=== PATIENT | female | born 1940 | race Caucasian/White ===

== ENCOUNTER 2017-01-27 17:27 | Inpatient (IN) | payer MEDICARE, MEDICAID ==
[~2017-01-27] VITALS: Ht 162.6 cm; Wt 89.0 kg
[2017-01-27] MEDS ORDERED: MORP30TA81 PO (18:19)
[2017-01-27] MEDS ORDERED: GABA100C8 PO (18:19)
[2017-01-27] MEDS ORDERED: DOCU-30 PO (18:19)
[2017-01-27] MEDS ORDERED: HEPA500024 SC (18:19)
[2017-01-27] MEDS ORDERED: OXYC5CAP4 PO (18:19)
[2017-01-27] MEDS ORDERED: METO25TA35 PO (18:19)
[2017-01-27] MEDS ORDERED: TRAM-28 PO (18:19)
[2017-01-27] MEDS ORDERED: SODIUM CHLORIDE 0.9% 1,000ML IVBOLUS ONE (18:30)
[2017-01-27] MEDS ORDERED: SODIUM CHLORIDE FLUSH 10ML SYR IVF ONE (18:30)
[2017-01-27] MEDS ORDERED: PLEASE ENTER ALLERGIES MC SCH ×2 (18:30)
[2017-01-27] MEDS ORDERED: PHARMACOKINETIC CONSULTATION MC ONE (18:30)
[2017-01-27] MEDS ORDERED: AMPICILLIN/SULBACTAM 3 GM in SODIUM CHLORIDE 0.9% 100 ML IVPB ONE (18:30)
[2017-01-27] MEDS ORDERED: VANCOMYCIN PER PHARMACY MC ONE (18:30)
[2017-01-27] MEDS ORDERED: VANCOMYCIN 2,000 MG in SODIUM CHLORIDE 0.9% 500 ML IV ONE (18:30)
[2017-01-27 20:19] LABS: BLOOD UREA NITROGEN 14 mg/dL (7-18)
[2017-01-27 20:22] LABS: DIFF TOTAL CELLS COUNTED 100 CELL DIFF
[2017-01-27 20:24] LABS: VERIFY COUNTS? YES
[2017-01-27 20:25] LABS: POLYCHROMASIA 1+
[2017-01-27] MEDS ORDERED: CLINDAMYCIN PMX 600MG/50ML 50 ML IV ONE (21:00)
[2017-01-28 00:23] VITALS: BP 134/69
[2017-01-28] MEDS ORDERED: GABAPENTIN 100 MG CAPSULE PO PRN (00:30)
[2017-01-28] MEDS ORDERED: TEMPLATE NON-FORMULARY MED. (Oxycodone Hcl** 5 MG) PO SCH (00:30)
[2017-01-28] MEDS: HEPARIN 5,000 UNITS/ML, 1ML SQ SCH ×3 (02:22→16:39)
[2017-01-28] MEDS: OXYCODONE MC SCH ×3 (02:24→17:29)
[2017-01-28] MEDS: TRAMADOL MC SCH ×4 (02:24→23:05)
[2017-01-28 02:33] VITALS: BP 150/69
[2017-01-28] MEDS ORDERED: VANCOMYCIN PER PHARMACY MC PRN (03:30)
[2017-01-28] MEDS ORDERED: PHARMACOKINETIC MONITORING MC PRN (04:00)
[2017-01-28] MEDS ORDERED: MORPHINE SULFATE 4 MG/ML, 1ML ONE (04:03)
[2017-01-28] MEDS: AMPICILLIN/SULBACTAM 3 GM in SODIUM CHLORIDE 0.9% 100 ML IV SCH ×4 (04:12→21:44)
[2017-01-28] MEDS: MORPHINE SULFATE 4 MG/ML, 1ML IVPush PRN ×3 (04:12→14:00)
[2017-01-28] MEDS: CLINDAMYCIN PMX 600MG/50ML 50 ML IV SCH ×3 (04:59→22:58)
[2017-01-28] MEDS: METOPROLOL TARTRATE 25 MG TABLET PO SCH ×2 (05:22→21:42)
[2017-01-28 07:40] VITALS: BP 149/65
[2017-01-28] MEDS ORDERED: VANCOMYCIN 1,300 MG in SODIUM CHLORIDE 0.9% 250 ML IVPB SCH (08:00)
[2017-01-28] MEDS ORDERED: HEPARIN SODIUM PORCINE SC SCH (09:00)
[2017-01-28] MEDS ORDERED: DOCUSATE 100 MG CAPSULE PO PRN (09:00)
[2017-01-28] MEDS ORDERED: [UNRECOGNIZED DRUG - OTHER] SC SCH (09:00)
[2017-01-28] MEDS ORDERED: FENTANYL PF 250 MCG/5ML ONE (09:14)
[2017-01-28] MEDS ORDERED: EPHEDRINE 50 MG/ML, 1ML ONE (09:21)
[2017-01-28] MEDS ORDERED: PROPOFOL 10 MG/ML, 20ML ONE (09:21)
[2017-01-28] MEDS ORDERED: VANCOMYCIN 1,000 MG ONE (10:14)
[2017-01-28 12:50] VITALS: BP 141/63
[2017-01-28] MEDS: SODIUM CHLORIDE 0.9% 1,000 ML IV SCH (13:09)
[2017-01-28] MEDS: VANCOMYCIN 1,700 MG in SODIUM CHLORIDE 0.9% 250 ML IV SCH (14:00)
[2017-01-28] MEDS: OXYcodone IR 5MG TABLET PO PRN ×2 (15:23→18:19)
[2017-01-28] MEDS: morphine SULFATE 10 MG/ML, 1ML IVPush PRN (17:26)
[2017-01-28 19:59] VITALS: BP 138/76
[2017-01-28 23:55] VITALS: BP 104/63
[2017-01-29] VITALS (9 sets, daily range): BP systolic 102–125; BP diastolic 43–61
[2017-01-29] MEDS: HEPARIN 5,000 UNITS/ML, 1ML SQ SCH ×3 (00:33→16:30)
[2017-01-29] MEDS: OXYcodone IR 5MG TABLET PO PRN (00:44)
[2017-01-29] MEDS: SODIUM CHLORIDE 0.9% 1,000 ML IV SCH (03:44)
[2017-01-29] MEDS: CLINDAMYCIN PMX 600MG/50ML 50 ML IV SCH ×3 (04:16→10:00)
[2017-01-29] MEDS: AMPICILLIN/SULBACTAM 3 GM in SODIUM CHLORIDE 0.9% 100 ML IV SCH ×3 (04:18→19:43)
[2017-01-29 05:55] LABS: BLOOD UREA NITROGEN 13 mg/dL (7-18)
[2017-01-29] MEDS: TRAMADOL MC SCH ×3 (06:15→22:14)
[2017-01-29 07:41] LABS: DIFF TOTAL CELLS COUNTED 100 CELL DIFF
[2017-01-29 07:58] LABS: VERIFY COUNTS? YES
[2017-01-29 07:59] LABS: ANISOCYTOSIS 1+; MICROCYTOSIS 1+; POIKILOCYTOSIS 1+
[2017-01-29] MEDS: METOPROLOL TARTRATE 25 MG TABLET PO SCH ×2 (08:40→22:13)
[2017-01-29] MEDS: VANCOMYCIN 1,700 MG in SODIUM CHLORIDE 0.9% 250 ML IV SCH (11:59)
[2017-01-30 01:24] VITALS: BP 126/60
[2017-01-30] MEDS: AMPICILLIN/SULBACTAM 3 GM in SODIUM CHLORIDE 0.9% 100 ML IV SCH ×2 (01:27→08:59)
[2017-01-30 02:26] VITALS: BP 117/58
[2017-01-30] MEDS: SODIUM CHLORIDE 0.9% 1,000 ML IV SCH ×3 (03:53→21:55)
[2017-01-30 05:39] LABS: ASPARTATE AMINO TRANSFERASE 19 U/L (15-37); BLOOD UREA NITROGEN 12 mg/dL (7-18)
[2017-01-30] MEDS: VANCOMYCIN 1,700 MG in SODIUM CHLORIDE 0.9% 250 ML IV SCH (06:12)
[2017-01-30] MEDS: TRAMADOL MC SCH (06:15)
[2017-01-30 07:32] VITALS: BP 139/60
[2017-01-30] MEDS: METOPROLOL TARTRATE 25 MG TABLET PO SCH ×2 (08:59→21:55)
[2017-01-30] MEDS ORDERED: morphine SULFATE 10 MG/ML, 1ML IVPush PRN (09:30)
[2017-01-30] MEDS: CEFTRIAXONE PMX 2GM/50ML 50 ML IV SCH ×2 (12:26→12:30)
[2017-01-30] MEDS: morphine SULFATE 10 MG/ML, 1ML IVPush PRN ×2 (13:49→21:58)
[2017-01-30 16:23] VITALS: BP 145/61
[2017-01-30] MEDS: CEFTAROLINE 600 MG in SODIUM CHLORIDE 0.9% 100 ML IV SCH (18:22)
[2017-01-30] MEDS ORDERED: FENTANYL PF 250 MCG/5ML ONE (19:45)
[2017-01-30] MEDS ORDERED: HYDROmorphone 1 MG/ML, 1ML ONE (19:54)
[2017-01-30] MEDS ORDERED: PROPOFOL 10 MG/ML, 20ML ONE (20:08)
[2017-01-30] MEDS ORDERED: ONDANSETRON 2MG/ML, 2ML ONE (20:08)
[2017-01-30] MEDS ORDERED: SUCCINYLCHOLINE 20 MG/ML, 10ML ONE (20:08)
[2017-01-30] MEDS ORDERED: FENTANYL PF 100 MCG/2ML ONE (20:45)
[2017-01-30] MEDS: FENTANYL PF 100 MCG/2ML IV PRN ×2 (20:45→20:55)
[2017-01-30] MEDS ORDERED: ONDANSETRON 2MG/ML, 2ML IVPush PRN (21:00)
[2017-01-30] MEDS ORDERED: EPHEDRINE 50 MG/ML, 1ML IVPush PRN (21:00)
[2017-01-30] MEDS ORDERED: OXYcodone 5 MG/5 ML ORAL.SOL UDC PO PRN (21:00)
[2017-01-30] MEDS ORDERED: hydrALAzine 20 MG/ML, 1ML IV PRN (21:00)
[2017-01-30] MEDS ORDERED: HYDROcodone/APAP 7.5-325MG/15ML UDC PO PRN (21:00)
[2017-01-30] MEDS ORDERED: HYDROmorphone 1 MG/ML, 1ML IV PRN (21:00)
[2017-01-30] MEDS ORDERED: PROMETHAZINE 25 MG/ML, 1ML IV PRN (21:00)
[2017-01-30] MEDS ORDERED: LABETALOL 5MG/ML, 20ML IV PRN (21:00)
[2017-01-30] MEDS ORDERED: ACETAMINOPHEN 325 MG TABLET PO PRN (21:00)
[2017-01-30 21:24] VITALS: BP 138/65
[2017-01-30 23:51] VITALS: BP 122/56
[2017-01-31 04:58] VITALS: BP 118/51
[2017-01-31] MEDS: SODIUM CHLORIDE 0.9% 1,000 ML IV SCH (05:29)
[2017-01-31] MEDS: CEFTAROLINE 600 MG in SODIUM CHLORIDE 0.9% 100 ML IV SCH ×2 (05:29→18:09)
[2017-01-31 08:15] VITALS: BP 127/55
[2017-01-31] MEDS: morphine SULFATE 10 MG/ML, 1ML IVPush PRN ×3 (09:55→18:09)
[2017-01-31] MEDS: METOPROLOL TARTRATE 25 MG TABLET PO SCH ×2 (09:56→20:30)
[2017-01-31 13:52] VITALS: BP 140/57
[2017-01-31 14:11] VITALS: BP 135/55
[2017-01-31 16:19] VITALS: BP 129/48
[2017-01-31 19:17] VITALS: BP 136/40
[2017-02-01 04:09] VITALS: BP 125/54
[2017-02-01] MEDS: CEFTAROLINE 600 MG in SODIUM CHLORIDE 0.9% 100 ML IV SCH ×3 (05:56→20:28)
[2017-02-01 06:54] LABS: ASPARTATE AMINO TRANSFERASE 19 U/L (15-37); BLOOD UREA NITROGEN 11 mg/dL (7-18)
[2017-02-01 06:58] VITALS: BP 142/63
[2017-02-01] MEDS: METOPROLOL TARTRATE 25 MG TABLET PO SCH ×2 (09:00→20:28)
[2017-02-01 13:04] VITALS: BP 139/63
[2017-02-01] MEDS: morphine SULFATE 10 MG/ML, 1ML IVPush PRN ×2 (14:24→20:28)
[2017-02-01] MEDS ORDERED: FENTANYL PF 250 MCG/5ML ONE (17:09)
[2017-02-01] MEDS ORDERED: ONDANSETRON 2MG/ML, 2ML ONE (17:15)
[2017-02-01] MEDS ORDERED: LABETALOL 20 MG/4 ML ONE (17:15)
[2017-02-01] MEDS ORDERED: PROPOFOL 10 MG/ML, 20ML ONE (17:15)
[2017-02-01] MEDS ORDERED: OXYcodone 5 MG/5 ML ORAL.SOL UDC PO PRN (18:00)
[2017-02-01] MEDS ORDERED: HYDROmorphone 1 MG/ML, 1ML IV PRN (18:00)
[2017-02-01] MEDS ORDERED: MIDAZOLAM 1 MG/ML, 2ML IV PRN (18:00)
[2017-02-01] MEDS ORDERED: PROMETHAZINE 25 MG/ML, 1ML IV PRN (18:00)
[2017-02-01] MEDS ORDERED: ONDANSETRON 2MG/ML, 2ML IVPush PRN (18:00)
[2017-02-01] MEDS ORDERED: ACETAMINOPHEN 325 MG TABLET PO PRN (18:00)
[2017-02-01] MEDS ORDERED: MEPERIDINE/PF 25MG/0.5ML IVPush PRN (18:00)
[2017-02-01] MEDS ORDERED: ALBUTEROL/IPRATROPIUM 2.5MG/0.5MG, 3 ML NPPB PRN (18:00)
[2017-02-01] MEDS ORDERED: hydrALAzine 20 MG/ML, 1ML IV PRN (18:00)
[2017-02-01] MEDS ORDERED: LABETALOL 5MG/ML, 20ML IV PRN (18:00)
[2017-02-01] MEDS ORDERED: ACETAMINOPHEN 650 MG/20.3 ML UDC ONE (18:03)
[2017-02-01] MEDS ORDERED: FENTANYL PF 100 MCG/2ML ONE (18:03)
[2017-02-01] MEDS ORDERED: OXYcodone 5 MG/5 ML ORAL.SOL UDC ONE (18:04)
[2017-02-01] MEDS: FENTANYL PF 100 MCG/2ML IV PRN ×2 (18:15→18:28)
[2017-02-01 19:55] VITALS: BP 126/59
[2017-02-01 22:44] VITALS: BP 118/51
[2017-02-02 02:02] VITALS: BP 107/48
[2017-02-02] MEDS: OXYcodone IR 5MG TABLET PO PRN ×2 (03:06→17:22)
[2017-02-02 08:18] VITALS: BP 123/57
[2017-02-02] MEDS: CEFTAROLINE 600 MG in SODIUM CHLORIDE 0.9% 100 ML IV SCH ×2 (08:55→20:42)
[2017-02-02] MEDS: METOPROLOL TARTRATE 25 MG TABLET PO SCH ×2 (08:56→20:45)
[2017-02-02] MEDS ORDERED: VISIPAQUE 270 MG/ML, 50ML BOTTLE ONE (12:06)
[2017-02-02 14:34] VITALS: BP 134/51
[2017-02-02 18:40] VITALS: BP 115/45
[2017-02-03 01:14] VITALS: BP 130/57
[2017-02-03] MEDS: OXYcodone IR 5MG TABLET PO PRN ×3 (05:02→16:00)
[2017-02-03 05:52] LABS: BLOOD UREA NITROGEN 10 mg/dL (7-18)
[2017-02-03 08:09] VITALS: BP 151/64
[2017-02-03] MEDS: METOPROLOL TARTRATE 25 MG TABLET PO SCH (08:51)
[2017-02-03] MEDS: CEFTAROLINE 600 MG in SODIUM CHLORIDE 0.9% 100 ML IV SCH (08:51)
[2017-02-03 12:49] VITALS: BP 122/52
[2017-02-03] MEDS ORDERED: CEFTAROLINE 600 MG in SODIUM CHLORIDE 0.9% 100 ML IV SCH ×2 (14:00→20:00)
== END 2017-02-03 16:15 | DRG 463 ==
LOC: ED 19:50 → EDIP 21:05 → 4NOR 23:05
PROVIDERS: ADMIT Internal Medicine
PROC: 0JBM0ZZ Excision of Left Upper Leg Subcutaneous Tissue and Fascia, Open Approach (ICD-10-PCS; 2017-01-28)
PROC: 30233N1 Transfusion of Nonautologous Red Blood Cells into Peripheral Vein, Percutaneous Approach (ICD-10-PCS; 2017-01-29)
PROC: 0QB90ZZ Excision of Left Femoral Shaft, Open Approach (ICD-10-PCS; principal; 2017-01-30 19:15)
PROC: 30233N1 Transfusion of Nonautologous Red Blood Cells into Peripheral Vein, Percutaneous Approach (ICD-10-PCS; 2017-01-31)
PROC: 0KBR0ZZ Excision of Left Upper Leg Muscle, Open Approach (ICD-10-PCS; 2017-02-01)
PROC: B548ZZA Ultrasonography of Superior Vena Cava, Guidance (ICD-10-PCS; 2017-02-02)
PROC: 02HV33Z Insertion of Infusion Device into Superior Vena Cava, Percutaneous Approach (ICD-10-PCS; 2017-02-02)
DX: T87.44 Infection of amputation stump, left lower extremity (principal); E43 Unspecified severe protein-calorie malnutrition; G92 Toxic encephalopathy; L03.116 Cellulitis of left lower limb; N39.0 Urinary tract infection, site not specified; D64.9 Anemia, unspecified; B37.9 Candidiasis, unspecified; B95.62 Methicillin resistant Staphylococcus aureus infection as the cause of diseases classified elsewhere; B95.2 Enterococcus as the cause of diseases classified elsewhere; B96.20 Unspecified Escherichia coli [E. coli] as the cause of diseases classified elsewhere; I11.0 Hypertensive heart disease with heart failure; I48.91 Unspecified atrial fibrillation; I50.9 Heart failure, unspecified; I73.9 Peripheral vascular disease, unspecified; Y83.5 Amputation of limb(s) as the cause of abnormal reaction of the patient, or of later complication, without mention of misadventure at the time of the procedure; Z79.899 Other long term (current) drug therapy; Z68.33 Body mass index [BMI] 33.0-33.9, adult; Z90.10 Acquired absence of unspecified breast and nipple
CPT/HCPCS: 36415; 36569; 70450; 71010; 76937; 77001; 80048; 80053; 81001; 82040; 82550; 83605; 83735; 84100; 85025; 85610; 85651; 85730; 86141; 86850; 86900; 86923; 87040; 87070; 87075; 87077; 87086; 87176; 87186; 87205; 87324; 93005; 96361; 96365; 96366; 96375; 96376; C1713; J0295; J0696; J0712; J1170; J1644; J2405; J2704; J3010; J3370; Q9966; C1751; J0330; J2270; J3490; J7030; J7040; J7050; P9016